=== PATIENT | female | born 1980 | race African-American/Black ===

== ENCOUNTER 2021-08-26 14:40 | Emergency (ER) | payer MEDICARE, MEDICAID ==
[~2021-08-26] VITALS: Ht 160 cm; Wt 81.8 kg
[2021-08-26] MEDS ORDERED: KETOROLAC TROMETHAMINE 30 MG/ML VIAL IVP ONE (15:15)
[2021-08-26] MEDS ORDERED: SODIUM CHLORIDE 0.9% 1,000 ML IV ONE (15:15)
[2021-08-26] MEDS ORDERED: ACETAMINOPHEN 500 MG TABLET PO ONE (15:15)
[2021-08-26 20:58] VITALS: BP 119/88
== END 2021-08-26 21:06 | disposition home or self-care (01) ==
LOC: EDBD 14:49 → EMS 14:49
DX: M54.2 Cervicalgia (principal); F20.9 Schizophrenia, unspecified; F17.210 Nicotine dependence, cigarettes, uncomplicated; F12.90 Cannabis use, unspecified, uncomplicated; Z86.2 Personal history of diseases of the blood and blood-forming organs and certain disorders involving the immune mechanism; Z87.19 Personal history of other diseases of the digestive system; Z88.0 Allergy status to penicillin; Z59.00 Homelessness unspecified
CPT/HCPCS: 96361; 96374; 99285; J1885; J7030

== ENCOUNTER 2021-08-26 21:01 | Emergency (ER) | payer MEDICARE, MEDICAID ==
[~2021-08-26] VITALS: Ht 160 cm; Wt 72.7 kg
[2021-08-26 22:00] VITALS: BP 123/82
[2021-08-26 22:01] LABS: BASOPHILS % (AUTO) 1.1 % (0.0-2.0); EOSINOPHILS % (AUTO) 8.5 % (1.0-6.0); HEMATOCRIT 34.4 % (36-46); HEMOGLOBIN 11.4 g/dL (12.0-16.0); LYMPHOCYTES # (AUTO) 1.6 K/uL (1.0-4.8); LYMPHOCYTES % (AUTO) 27.2 % (22.0-44.0); MEAN CORPUSCULAR HEMOGLOBIN 26.6 pg (26.0-34.0); MEAN CORPUSCULAR HGB CONC 33.2 G/dL (31.0-37.0); MEAN CORPUSCULAR VOLUME 80 fL (80-100); MONOCYTES # (AUTO) 0.4 K/uL (0.1-1.0); NEUTROPHILS # (AUTO) 3.4 K/uL (1.8-7.7); NEUTROPHILS % (AUTO) 56.2 % (40.0-70.0); PLATELET COUNT (AUTO) 287 K/uL (150-450); RED CELL DISTRIBUTION WIDTH 13.1 % (11.5-14.5)
[2021-08-26 23:03] LABS: ANION GAP 9 mmol/L (8-16); CALCIUM, TOTAL 8.1 mg/dL (8.8-10.5); CARBON DIOXIDE 27 mmol/L (22-29); CHLORIDE 106 mmol/L (98-107); CREATININE 1.06 mg/dL (0.60-1.30); GLOMERULAR FILTR. RATE CALC > 60 mL/min (>60); GLUCOSE,RANDOM 91 mg/dL (70-110); POTASSIUM 3.8 mmol/L (3.5-5.1); SODIUM SERUM 142 mmol/L (136-145); UREA NITROGEN, BLOOD 10 mg/dL (7-18)
[2021-08-26 23:09] LABS: ALANINE AMINOTRANSFERASE 25 U/L (12-78); ALBUMIN 3.3 g/dL (3.4-5.0); ALKALINE PHOSPHATASE 88 U/L (46-116); ASPARTATE AMINOTRANSFERASE 22 U/L (15-37); BILIRUBIN,TOTAL 0.4 mg/dL (0.1-1.0)
== END 2021-08-27 02:53 | disposition home or self-care (01) ==
LOC: EMS 21:01
DX: M54.2 Cervicalgia (principal); M79.18 Myalgia, other site; F17.210 Nicotine dependence, cigarettes, uncomplicated; F20.9 Schizophrenia, unspecified; F12.90 Cannabis use, unspecified, uncomplicated; Z86.2 Personal history of diseases of the blood and blood-forming organs and certain disorders involving the immune mechanism; Z87.19 Personal history of other diseases of the digestive system; Z88.0 Allergy status to penicillin
CPT/HCPCS: 36415; 80053; 85025; 99283; G0480

== ENCOUNTER 2021-08-27 19:09 | Inpatient (IN) | payer MEDICARE, MEDICAID ==
[~2021-08-27] VITALS: Ht 160 cm; Wt 98.4 kg
[2021-08-27 22:06] LABS: COVID AG,FIA SOURCE NASOPHARYNGEAL
[2021-08-28] MEDS ORDERED: DiphenhydrAMINE HCL 25 MG CAPSULE PO ONE (04:30)
[2021-08-28] MEDS: HALOPERIDOL 5 MG TABLET PO PRN (04:37)
[2021-08-28] MEDS: LORazepam 1 MG TABLET PO PRN (04:37)
[2021-08-28 16:47] VITALS: BP 146/93
[2021-08-28] MEDS: ZOLPIDEM TARTRATE 10 MG TABLET PO PRN (20:39)
[2021-08-28 21:07] VITALS: BP 127/66
[2021-08-29 01:00] VITALS: BP 128/70
[2021-08-29] MEDS ORDERED: MAG HYDROX/AL HYDROX/SIMETH ES 30 ML SUSPENSION UDCUP PO PRN (08:00)
[2021-08-29] MEDS ORDERED: BENZOCAINE/MENTHOL LOZENGE PO PRN (08:00)
[2021-08-29] MEDS ORDERED: IBUPROFEN 600 MG TABLET PO PRN (08:00)
[2021-08-29] MEDS ORDERED: CloNIDine HCL 0.1 MG TABLET PO PRN (08:00)
[2021-08-29] MEDS ORDERED: PETROLATUM,WHITE 28 GM JELLY TP PRN (08:00)
[2021-08-29] MEDS: LORazepam 1 MG TABLET PO PRN ×2 (08:00→20:51)
[2021-08-29] MEDS ORDERED: ACETAMINOPHEN 325 MG TABLET PO PRN (08:00)
[2021-08-29] MEDS ORDERED: ONDANSETRON HCL 4 MG TABLET PO PRN (08:00)
[2021-08-29] MEDS ORDERED: LOPERAMIDE HCL 2 MG CAPSULE PO PRN (08:00)
[2021-08-29] MEDS ORDERED: OMEPRAZOLE 20 MG CAPSULE PO PRN (08:00)
[2021-08-29] MEDS ORDERED: ALBUTEROL SULFATE HFA 90 MCG/PUFF 8 GM INHALER IH PRN (08:00)
[2021-08-29] MEDS: HALOPERIDOL 5 MG TABLET PO PRN ×2 (08:00→20:51)
[2021-08-29] MEDS ORDERED: MAGNESIUM HYDROXIDE SUSPENSION 30 ML UDCUP PO PRN (08:00)
[2021-08-29] MEDS ORDERED: DOCUSATE SODIUM 100 MG CAPSULE PO PRN (08:00)
[2021-08-29] MEDS ORDERED: BACITRACIN 28 GM OINTMENT TP PRN (08:00)
[2021-08-29 08:33] VITALS: BP 145/94
[2021-08-29] MEDS: NICOTINE 14 MG/24 HOUR PATCH TD SCH (08:58)
[2021-08-29] MEDS: DiphenhydrAMINE HCL 25 MG CAPSULE PO SCH ×3 (12:56→17:31)
[2021-08-29 16:30] VITALS: BP 136/79
[2021-08-29] MEDS: ZOLPIDEM TARTRATE 10 MG TABLET PO PRN (20:52)
[2021-08-30 01:02] VITALS: BP 132/77
[2021-08-30] MEDS: DiphenhydrAMINE HCL 25 MG CAPSULE PO SCH ×3 (08:15→16:46)
[2021-08-30] MEDS: NICOTINE 14 MG/24 HOUR PATCH TD SCH (08:16)
[2021-08-30 08:31] VITALS: BP 130/73
[2021-08-30] MEDS: HALOPERIDOL 5 MG TABLET PO PRN (14:14)
[2021-08-30] MEDS: LORazepam 1 MG TABLET PO PRN (14:14)
[2021-08-30 16:23] VITALS: BP 137/75
[2021-08-30] MEDS: RisperiDONE 2 MG TABLET PO SCH (21:17)
[2021-08-31 06:30] VITALS: BP 131/73
[2021-08-31 08:16] VITALS: BP 129/72
[2021-08-31] MEDS: DiphenhydrAMINE HCL 25 MG CAPSULE PO SCH ×3 (08:40→17:06)
[2021-08-31] MEDS: NICOTINE 14 MG/24 HOUR PATCH TD SCH (08:40)
[2021-08-31] MEDS: RisperiDONE 2 MG TABLET PO SCH ×2 (08:40→21:32)
[2021-08-31 16:28] VITALS: BP 139/90
[2021-08-31] MEDS ORDERED: DIPH25 PO (20:16)
[2021-08-31] MEDS ORDERED: RISP2TAB86 PO (20:16)
[2021-09-01 06:07] VITALS: BP 132/85
[2021-09-01] MEDS: RisperiDONE 2 MG TABLET PO SCH (08:10)
[2021-09-01] MEDS: DiphenhydrAMINE HCL 25 MG CAPSULE PO SCH ×2 (08:10→12:19)
[2021-09-01] MEDS: NICOTINE 14 MG/24 HOUR PATCH TD SCH (08:11)
[2021-09-01 08:53] VITALS: BP 143/79
== END 2021-09-01 13:15 | disposition home or self-care (01) | DRG 881 ==
LOC: EMS 19:14 → B2S 08-28 14:45
PROVIDERS: ADMIT Psychiatry & Neurology Psychiatry; ATTEND Psychiatry & Neurology Psychiatry
DX: F32.9 Major depressive disorder, single episode, unspecified (principal); F12.90 Cannabis use, unspecified, uncomplicated; F20.9 Schizophrenia, unspecified; Z20.822 Contact with and (suspected) exposure to COVID-19; F17.210 Nicotine dependence, cigarettes, uncomplicated; G47.00 Insomnia, unspecified; K59.00 Constipation, unspecified; F41.9 Anxiety disorder, unspecified; F10.10 Alcohol abuse, uncomplicated; Y90.9 Presence of alcohol in blood, level not specified; Z88.0 Allergy status to penicillin; Z91.14 Patient's other noncompliance with medication regimen; Z59.00 Homelessness unspecified; Z71.41 Alcohol abuse counseling and surveillance of alcoholic; Z71.6 Tobacco abuse counseling
CPT/HCPCS: 84702; 99285; G0480

== ENCOUNTER 2021-10-27 13:11 | Emergency (ER) | payer MEDICARE, MEDICAID ==
[~2021-10-27] VITALS: Ht 162.6 cm; Wt 86.4 kg
[~2021-10-27 13:11] MED LIST: ANTIBIOTIC PO; DIPH25 PO; DIVA125T32 PO; OMEP20 PO; ONDA-104 PO; RISP2TAB45 PO; RISP2TAB86 PO
[2021-10-27 14:23] LABS: COVID AG,FIA SOURCE NASAL SWAB
[2021-10-27] MEDS ORDERED: RisperiDONE 1 MG TABLET PO ONE (14:30)
[2021-10-27] MEDS ORDERED: LORazepam 1 MG TABLET PO ONE (14:30)
[2021-10-27 14:39] LABS: BASOPHILS % (AUTO) 1.4 % (0.0-2.0); EOSINOPHILS % (AUTO) 10.3 % (1.0-6.0); HEMATOCRIT 36.2 % (36-46); LYMPHOCYTES # (AUTO) 1.4 K/uL (1.0-4.8); LYMPHOCYTES % (AUTO) 29.7 % (22.0-44.0); MEAN CORPUSCULAR HGB CONC 33.1 G/dL (31.0-37.0); MEAN CORPUSCULAR VOLUME 79 fL (80-100); MONOCYTES # (AUTO) 0.4 K/uL (0.1-1.0); MONOCYTES % (AUTO) 9.3 % (2.0-9.0); NEUTROPHILS # (AUTO) 2.4 K/uL (1.8-7.7); NEUTROPHILS % (AUTO) 49.3 % (40.0-70.0); PLATELET COUNT (AUTO) 265 K/uL (150-450); RED BLOOD CELL COUNT(AUTO) 4.59 MIL/uL (4.00-5.20)
[2021-10-27 14:48] LABS: ANION GAP 7 mmol/L (8-16); CALCIUM, TOTAL 8.7 mg/dL (8.8-10.5); CARBON DIOXIDE 26 mmol/L (22-29); CHLORIDE 102 mmol/L (98-107); GLOMERULAR FILTR. RATE CALC > 60 mL/min (>60); GLUCOSE,RANDOM 73 mg/dL (70-110); POTASSIUM 3.9 mmol/L (3.5-5.1); SODIUM SERUM 135 mmol/L (136-145); UREA NITROGEN, BLOOD 12 mg/dL (7-18)
[2021-10-27 15:11] VITALS: BP 136/76
== END 2021-10-27 15:34 | disposition home or self-care (01) ==
LOC: EMS 13:11
DX: F10.129 Alcohol abuse with intoxication, unspecified (principal); F15.10 Other stimulant abuse, uncomplicated; J45.909 Unspecified asthma, uncomplicated; F31.9 Bipolar disorder, unspecified; F20.9 Schizophrenia, unspecified; F17.210 Nicotine dependence, cigarettes, uncomplicated; F12.90 Cannabis use, unspecified, uncomplicated; Z87.19 Personal history of other diseases of the digestive system; Z88.0 Allergy status to penicillin; Z20.822 Contact with and (suspected) exposure to COVID-19
CPT/HCPCS: 80048; 84703; 85025; 99285

== ENCOUNTER 2021-12-27 13:20 | Emergency (ER) | payer MEDICARE, MEDICAID ==
[~2021-12-27] VITALS: Ht 160 cm; Wt 97.7 kg
[2021-12-27 14:43] LABS: BASOPHILS % (AUTO) 1.1 % (0.0-2.0); EOSINOPHILS % (AUTO) 7.9 % (1.0-6.0); HEMATOCRIT 33.7 % (36-46); HEMOGLOBIN 11.4 g/dL (12.0-16.0); LYMPHOCYTES # (AUTO) 1.4 K/uL (1.0-4.8); LYMPHOCYTES % (AUTO) 22.7 % (22.0-44.0); MEAN CORPUSCULAR HGB CONC 33.8 G/dL (31.0-37.0); MEAN CORPUSCULAR VOLUME 77 fL (80-100); MONOCYTES # (AUTO) 0.5 K/uL (0.1-1.0); MONOCYTES % (AUTO) 7.5 % (2.0-9.0); NEUTROPHILS # (AUTO) 3.7 K/uL (1.8-7.7); NEUTROPHILS % (AUTO) 60.8 % (40.0-70.0); PLATELET COUNT (AUTO) 274 K/uL (150-450); RED BLOOD CELL COUNT(AUTO) 4.37 MIL/uL (4.00-5.20); RED CELL DISTRIBUTION WIDTH 13.4 % (11.5-14.5)
[2021-12-27 14:55] LABS: ANION GAP 8 mmol/L (8-16); CALCIUM, TOTAL 8.5 mg/dL (8.8-10.5); CARBON DIOXIDE 30 mmol/L (22-29); CHLORIDE 100 mmol/L (98-107); CREATININE 1.02 mg/dL (0.60-1.30); GLUCOSE,RANDOM 92 mg/dL (70-110); POTASSIUM 3.9 mmol/L (3.5-5.1); SODIUM SERUM 138 mmol/L (136-145); UREA NITROGEN, BLOOD 8 mg/dL (7-18)
[2021-12-27 14:56] LABS: GLOMERULAR FILTR. RATE CALC > 60 mL/min (>60)
[2021-12-27 15:08] LABS: ALANINE AMINOTRANSFERASE 19 U/L (12-78); ALBUMIN 3.9 g/dL (3.4-5.0); ALKALINE PHOSPHATASE 94 U/L (46-116); ASPARTATE AMINOTRANSFERASE 18 U/L (15-37); BILIRUBIN,TOTAL 0.3 mg/dL (0.1-1.0); HCG,QUANTITATIVE 1 mIU/mL (0-6); TOTAL PROTEIN, SERUM 7.5 g/dL (6.4-8.2)
[2021-12-27] MEDS ORDERED: ONDANSETRON HCL 4 MG TABLET PO ONE (15:30)
[2021-12-27 16:51] LABS: AMPHET/METH SCREEN,URINE POSITIVE (NEGATIVE); BARBITURATE SCREEN, URINE NEGATIVE (NEGATIVE); BENZODIAZEPINES SCREEN,URINE NEGATIVE (NEGATIVE); CANNABINOID SCREEN,URINE POSITIVE (NEGATIVE); COCAINE SCREEN,URINE NEGATIVE (NEGATIVE); METHADONE SCREEN, URINE NEGATIVE (NEGATIVE); OPIATE SCREEN,URINE NEGATIVE (NEGATIVE)
[2021-12-27 16:52] LABS: PHENCYCLIDINE SCREEN,URINE NEGATIVE (NEGATIVE)
[2021-12-27 17:56] VITALS: BP 154/91
== END 2021-12-27 18:27 | disposition home or self-care (01) ==
LOC: EMS 13:20
DX: R07.9 Chest pain, unspecified (principal); F41.9 Anxiety disorder, unspecified; R11.0 Nausea; F15.10 Other stimulant abuse, uncomplicated; J45.909 Unspecified asthma, uncomplicated; F31.9 Bipolar disorder, unspecified; F20.9 Schizophrenia, unspecified; F17.210 Nicotine dependence, cigarettes, uncomplicated; F12.90 Cannabis use, unspecified, uncomplicated; Z87.19 Personal history of other diseases of the digestive system; Z88.0 Allergy status to penicillin
CPT/HCPCS: 99285; 71045; 80053; 84484; 84702; 85025; 36415; 93005; 80307; Q0162

== ENCOUNTER 2022-01-31 22:15 | Emergency (ER) | payer MEDICARE, MEDICAID ==
[~2022-01-31] VITALS: Ht 160 cm; Wt 95.5 kg
[2022-02-01 00:09] LABS: APPEARANCE,URINE HAZY (CLEAR); BILIRUBIN,URINE NEGATIVE (NEGATIVE); GLUCOSE, URINE (UA) NEGATIVE (NEGATIVE); KETONES,URINE NEGATIVE (NEGATIVE); LEUKOCYTE ESTERASE ,URINE LARGE (NEGATIVE); NITRATE,URINE POSITIVE (NEGATIVE); OCCULT BLOOD,URINE TRACE (NEGATIVE); PH,URINE 5.5 (5.0-8.0); PROTEIN,URINE TRACE mg/dL (NEGATIVE); SPECIFIC GRAVITIY, URINE 1.015 (1.003-1.030); UROBILINOGEN,URINE <=1.0 mg/dL (<=1.0)
[2022-02-01 00:28] LABS: BACTERIA,URINE Many /HPF (None Seen); RBC,URINE 0-2 /HPF (0-2); SQUAMOUS EPITHELIAL CELL,UR Few /LPF (None Seen); WBC,URINE 26-50 /HPF (0-5)
[2022-02-01] MEDS ORDERED: NITR-75 PO (00:28)
[2022-02-01 01:34] VITALS: BP 118/76
== END 2022-02-01 02:58 | disposition home or self-care (01) ==
LOC: EMS 22:16
DX: N39.0 Urinary tract infection, site not specified (principal); J45.909 Unspecified asthma, uncomplicated; F31.9 Bipolar disorder, unspecified; F20.9 Schizophrenia, unspecified; F17.210 Nicotine dependence, cigarettes, uncomplicated; F15.90 Other stimulant use, unspecified, uncomplicated; F12.90 Cannabis use, unspecified, uncomplicated; Z87.19 Personal history of other diseases of the digestive system; Z88.0 Allergy status to penicillin
CPT/HCPCS: 81001; 84703; 87086; 87186; 93005; 99284

== ENCOUNTER 2024-12-07 21:58 | Emergency (ER) | payer MEDICARE, MEDICAID ==
[~2024-12-07] VITALS: Ht 160 cm; Wt 114.5 kg
[~2024-12-07 21:58] MED LIST changes: +DIPH-1243 PO; -DIPH25 PO; +NITR-104 PO; +OMEP-148 PO; -OMEP20 PO; +RISP-32 PO; -RISP2TAB86 PO
[2024-12-07 22:00] VITALS: TEMP 97.4
[2024-12-07 22:57] LABS: PLATELET COUNT (AUTO) 212 K/uL (150-450); RED BLOOD CELL COUNT(AUTO) 4.37 MIL/uL (4.00-5.20); RED CELL DISTRIBUTION WIDTH 13.7 % (11.5-14.5); WHITE BLOOD COUNT (AUTO) 5.9 K/uL (4.5-11.0)
[2024-12-07 23:00] LABS: CALCIUM, TOTAL 8.3 mg/dL (8.8-10.5); CREATININE 1.13 mg/dL (0.60-1.30); GLOMERULAR FILTR. RATE CALC > 60 mL/min (>60); GLUCOSE,RANDOM 106 mg/dL (70-110); SODIUM SERUM 141 mmol/L (136-145); UREA NITROGEN, BLOOD 17 mg/dL (7-18)
[2024-12-07 23:06] LABS: ASPARTATE AMINOTRANSFERASE 22.0 U/L (15-37); TOTAL PROTEIN, SERUM 7.1 g/dL (6.4-8.2)
[2024-12-08 00:10] VITALS: BP 120/77; PULSE 95; RESP 18; O2SAT 97
== END 2024-12-08 00:43 | disposition home or self-care (01) ==
LOC: EMS 21:58
DX: K59.00 Constipation, unspecified (principal); R10.32 Left lower quadrant pain; F31.9 Bipolar disorder, unspecified; F20.9 Schizophrenia, unspecified; J45.909 Unspecified asthma, uncomplicated; F12.90 Cannabis use, unspecified, uncomplicated; F17.210 Nicotine dependence, cigarettes, uncomplicated; F15.90 Other stimulant use, unspecified, uncomplicated; Z88.0 Allergy status to penicillin; Z79.899 Other long term (current) drug therapy
CPT/HCPCS: 80048; 80076; 83690; 85025; 99283